=== PATIENT | female | born 1970 | race Caucasian/White ===

== ENCOUNTER → 2017-04-30 17:43 | Outpatient (CLI) | payer MEDICAID ==
[2015-04-27 08:12] VITALS: BMI 17.1
[~2017-04-30 17:43] MED LIST: NEURONTIN 300300 MG PO; PHENERGAN25 M1 PO; PROZAC20 MG PO; TYLENOL #4 W/CO1 TAB PO; XANAX2 MG PO
== END | disposition home or self-care (01) ==
LOC: D.MAMMO 10:45
DX: Z12.31 Encounter for screening mammogram for malignant neoplasm of breast (principal)